=== PATIENT | female | born 1950 | race Caucasian/White ===

== ENCOUNTER 2017-04-07 11:38 | Emergency (ER) | payer MEDICARE, BC ==
[~2017-04-07] VITALS: Ht 157.5 cm; Wt 88.0 kg
[2017-04-07 11:45] VITALS: Ht 157.5 cm; Wt 88.0 kg
[2017-04-07] MEDS ORDERED: SOD CHLORIDE 0.9% 1,000 ML IV STA (13:44)
[2017-04-07] MEDS ORDERED: METF500T4 PO (13:58)
[2017-04-07] MEDS ORDERED: METO-429 PO (13:58)
[2017-04-07] MEDS ORDERED: RIVA20TA PO (13:59)
[2017-04-07] MEDS ORDERED: DIGO250T6 PO (13:59)
[2017-04-07] MEDS ORDERED: DEXL60CA2 PO (13:59)
[2017-04-07] MEDS ORDERED: ENAL5TAB PO (14:00)
[2017-04-07] MEDS ORDERED: ENALAPRILAT 1.25 MG INJ IV ONE (14:00)
[2017-04-07] MEDS ORDERED: LORAZEPAM 0.5 MG TAB PO ONE (14:00)
[2017-04-07 14:15] LABS: ADD SCAN DIFF NO
[2017-04-07 14:17] LABS: ABNORMAL IP MESSAGE 1; BASOPHILS % 0.6 % (0.0-2.0); EOSINOPHILS # 0.1 10^3/ul (0.0-0.5); HEMATOCRIT 37.6 % (37.0-47.0); HEMOGLOBIN 11.2 g/dl (12.0-16.0); LYMPHOCYTES # 1.9 10^3/ul (0.8-2.9); LYMPHOCYTES % 36.5 % (15.0-51.0); MEAN CORPUSCULAR HEMOGLOBIN 22.3 pg (29.0-33.0); MEAN CORPUSCULAR HGB CONC 29.8 g/dl (32.0-37.0); MEAN CORPUSCULAR VOLUME 74.9 fl (82.0-101.0); MONOCYTE # 0.4 10^3/ul (0.3-0.9); MONOCYTES % 8.2 % (0.0-11.0); NEUTROPHIL # 2.7 10^3/ul (1.6-7.5); NEUTROPHILS % 53.3 % (39.0-77.0); PLATELET COUNT 231 10^3/UL (140-415); RED BLOOD COUNT 5.02 10^6/ul (4.20-5.40); RED CELL DISTRIBUTION WIDTH 20.7 % (11.5-14.5); WHITE BLOOD COUNT 5.1 10^3/ul (4.8-10.8)
[2017-04-07 14:21] LABS: ADD UMIC NO; URINE BILIRUBIN (Dip) NEGATIVE (NEGATIVE); URINE BLOOD (Dip) NEGATIVE (NEGATIVE); URINE COLOR LT. YELLOW (YELLOW); URINE GLUCOSE (Dip) NEGATIVE (NEGATIVE); URINE KETONES (Dip) NEGATIVE (NEGATIVE); URINE LEUKOCYTE ESTERASE (Dip) NEGATIVE (NEGATIVE); URINE NITRITE (Dip) NEGATIVE (NEGATIVE); URINE TOTAL PROTEIN (Dip) NEGATIVE (NEGATIVE); URINE UROBILINOGEN (Dip) 0.2 E.U./dL (0.1-1.0)
[2017-04-07] MEDS ORDERED: NAPR-260 PO (14:42)
[2017-04-07] MEDS ORDERED: HYD25 PO (14:42)
--- NOTE | 2017-04-07 14:44 | ERD ---
ER Documentation Chief Complaint Date/Time DATE: 04/07/17 TIME: 14:43 Chief Complaint she feels slow, neck, back pain,htn, x 1 week HPI 66-year-old woman here for evaluation of hypertension. She does have a history of hypertension but her blood pressure has been running high recently, ever since her primary care physician told her to decrease the amount of metoprolol she uses due to unacceptable levels of bradycardia. Patient does have a history of bradycardia although this seems with her most recent dose of metoprolol pulse was running dangerously low. Patient states for the last few days she is pressure-like sensation in her scalp secondary to hypertension but denies chest pain or shortness of breath, no loss of consciousness, no slurred speech, noticed difficulty ambulating, no weakness in arms or legs. ROS All systems reviewed and are negative except as per history of present illness. Medications Home Meds Active Scripts Naproxen* (Naprosyn*) 500 Mg Tablet, 500 MG PO BID Y for PAIN AND/OR INFLAMMATION, #30 TAB Prov:NGHIA WINTER MD 04/07/17 Hydrochlorothiazide* (Hydrochlorothiazide*) 25 Mg Tab, 50 MG PO DAILY, #30 TAB Prov:NGHIA WINTER MD 04/07/17 Reported Medications Enalapril Maleate* (Enalapril Maleate*) 5 Mg Tablet, 5 MG PO DAILY, TAB 04/07/17 Rivaroxaban* (Xarelto*) 20 Mg Tablet, 20 MG PO WITH DINNER, TAB 04/07/17 Digoxin* (Lanoxin*) 0.25 Mg Tablet, 0.25 MG PO DAILY, TAB 04/07/17 Dexlansoprazole (Dexilant) 60 Mg Cap., 60 MG PO DAILY, #30 CAP 04/07/17 Metoprolol Tartrate* (Lopressor*) 50 Mg Tab, 50 MG PO BID, #60 TAB 04/07/17 Metformin Hcl* (Metformin Hcl*) 500 Mg Tablet, 500 MG PO WITH BREAKFAST, #30 TAB 04/07/17 Allergies Allergies: Coded Allergies: No Known Allergy (Unverified , 04/07/17) PMhx/Soc Hypertension, atrial fibrillation, obesity, bradycardia Hx Cardiac Disorders: Yes Hx Alcohol Use: No Hx Substance Use: No Hx Tobacco Use: No Smoking Status: Never smoker FmHx Family History: No diabetes Physical Exam Vitals Vital Signs Date Time Temp Pulse Resp B/P Pulse Ox O2 Delivery O2 Flow Rate FiO2 04/07/17 16:08 58 18 163/80 99 04/07/17 14:31 46 18 176/74 99 04/07/17 11:45 97.2 55 18 196/81 99 Physical Exam GENERAL: Well-developed, well-nourished, well-hydrated, in no apparent distress , looks nontoxic in appearance HEENT: Moist mucous membranes, pink conjunctiva, no cervical spine tenderness or step-off deformities, no goiter, no jaundice or icterus, extraocular movements intact without pain. No submandibular induration, and no pharyngeal erythema NEURO: Alert and oriented 3, cranial nerves II through XII intact bilaterally, pupils equal round reactive to light, no focal deficits or facial asymmetry, sensation intact distally Strength 5/5 in upper and lower extremities bilaterally CARDIAC: Regular rate and rhythm, no murmurs rubs or gallops LUNGS: Clear bilaterally no wheezing crackles or stridor ABDOMEN: Soft nontender, no guarding, no rigidity, no rebound, no psoas sign no obturator sign. Normoactive bowel sounds SKIN: Warm and dry to touch, no abrasions, contusions, or hematomas, no lacerations, no ecchymosis, no target lesions, and without ulcers EXTREMITIES: No clubbing cyanosis or edema, calves are bilaterally symmetrical, no Homans sign, no popliteal cord sign. Distal pulses equal and bilateral PSYCH: Normal affect without agitation or irritability Result Diagram: 04/07/17 1402 04/07/17 1500 Results 24 hrs Laboratory Tests Test 04/07/17 13:50 04/07/17 14:02 04/07/17 15:00 Urine Color LT. YELLOW Urine Clarity CLEAR Urine pH 6.5 Urine Specific [place] 1.010 Urine Ketones NEGATIVE Urine Nitrite NEGATIVE Urine Bilirubin NEGATIVE Urine Urobilinogen 0.2 E.U./dL Urine Leukocyte Esterase NEGATIVE Urine Hemoglobin NEGATIVE Urine Glucose NEGATIVE% Urine Total Protein NEGATIVE White Blood Count 5.110^3/ul Red Blood Count 5.0210^6/ul Hemoglobin 11.2g/dl Hematocrit 37.6% Mean Corpuscular Volume 74.9fl Mean Corpuscular Hemoglobin 22.3pg Mean Corpuscular Hemoglobin Concent 29.8g/dl Red Cell Distribution Width 20.7% Platelet Count 28836^3/UL Mean Platelet Volume fl Neutrophils % 53.3% Lymphocytes % 36.5% Monocytes % 8.2% Eosinophils % 1.0% Basophils % 0.6% Nucleated Red Blood Cells % 0.0/100WBC Neutrophils # 2.710^3/ul Lymphocytes # 1.910^3/ul Monocytes # 0.410^3/ul Eosinophils # 0.110^3/ul Basophils # 0.010^3/ul Nucleated Red Blood Cells # 0.010^3/ul Sodium Level 145mmol/L Potassium Level 3.8mmol/L Chloride Level 104mmol/L Carbon Dioxide Level 29mmol/L Anion Gap 16 Blood Urea Nitrogen 10mg/dl Creatinine 0.57mg/dl Glucose Level 105mg/dl Calcium Level 9.6mg/dl Total Bilirubin 0.6mg/dl Direct Bilirubin 0.00mg/dl Indirect Bilirubin 0.6mg/dl Aspartate Amino Transf (AST/SGOT) 23IU/L Alanine Aminotransferase (ALT/SGPT) 38IU/L Alkaline Phosphatase 68IU/L Troponin I < 0.012ng/ml Total Protein 7.9g/dl Albumin 4.3g/dl Globulin 3.60g/dl Albumin/Globulin Ratio 1.19 Lipase 48U/L Current Medications Medications (Trade) Dose Ordered Sig/[place] Route PRN Reason Start Time Stop Time Status Last Admin Dose Admin Sodium Chloride (NS) 1,000 ml @ 1,000 mls/hr Q1H STAT IV 04/07/17 13:44 04/07/17 14:43 DC 04/07/17 14:21 Enalaprilat (Vasotec Iv) 1.25 mg ONCE ONCE IV 04/07/17 14:00 04/07/17 14:01 DC 04/07/17 14:21 Lorazepam (Ativan) 0.5 mg ONCE ONCE PO 04/07/17 14:00 04/07/17 14:01 DC 04/07/17 14:20 Procedures/[facility] IV line was established patient was placed on surveillance system monitor rhythm strip revealed a narrow complex bradycardia at about 50 bpm. Patient was afebrile. EKG performed, read by me revealed an atrial fibrillation with slow ventricular response of 52 bpm, normal axis, narrow QRS complex, no concerning ST elevations or depressions noted. I administered 1 L normal saline intravenously, lorazepam 0.5 mg p.o., and enalapril 1.25 mg IV with good effect. CBC and electrolytes were unremarkable, liver function tests are normal, troponin was negative. Urine analysis was negative for infection. Systolic diastolic pressures fell about 20 points, patient feels much better and looks well. I recommended she use hydrochlorothiazide daily to help control her blood pressure until she sees her PMD. I did prescribe her this hydrochlorothiazide 50 mg p.o. Differential diagnoses considered, included but not limited to acute coronary syndrome, pulmonary embolism, aortic dissection, abdominal aortic aneurysm, sepsis, stroke, meningitis, encephalitis, pneumonia, appendicitis, cholecystitis , bowel obstruction, pyelonephritis, nephrolithiasis, cystitis, as well as metabolic, hematologic, and electrolyte abnormalities. As well as abscess, cellulitis, fractures, and dislocations. Patient feels much better at this time, and vital signs are normal, symptoms have improved. I did give strict instructions to return to the ED if symptoms continue or worsen, patient will otherwise follow-up with primary care physician. Patient understood instructions and agreed to plan. Departure Diagnosis: Primary Impression: Hypertension Hypertension type: essential hypertension Qualified Code: I10 - Essential hypertension Additional Impression: Bradycardia Condition: Good Patient Instructions: High Blood Pressure (Hypertension) NGHIA WINTER MD April 07, 2017 14:44
[2017-04-07 15:31] LABS: ALBUMIN 4.3 g/dl (3.3-4.9)
[2017-04-07 15:32] LABS: CHLORIDE 104 mmol/L (97-110); POTASSIUM 3.8 mmol/L (3.5-5.1); SODIUM 145 mmol/L (135-144)
[2017-04-07 15:34] LABS: BILIRUBIN,INDIRECT 0.6 mg/dl (0-1.1); BILIRUBIN,TOTAL 0.6 mg/dl (0.2-1.3); CREATININE 0.57 mg/dl (0.44-1.00)
[2017-04-07 15:35] LABS: ALANINE AMINOTRANSFERASE 38 IU/L (13-69); ALBUMIN/GLOBULIN RATIO 1.19; ALKALINE PHOSPHATASE 68 IU/L (42-121); ANION GAP 16 (8-16); ASPARTATE AMINO TRANSFERASE 23 IU/L (15-46); BLOOD UREA NITROGEN 10 mg/dl (7-20); CALCIUM 9.6 mg/dl (8.4-10.2); CARBON DIOXIDE 29 mmol/L (21-31); GLUCOSE 105 mg/dl (70-220); TOTAL PROTEIN 7.9 g/dl (6.1-8.1)
[2017-04-07 15:48] LABS: TROPONIN-I < 0.012 ng/ml (0.00-0.12)
[2017-04-07 16:08] VITALS: BP 163/80; PULSE 58; RESP 18
== END 2017-04-07 16:22 | disposition home or self-care (01) ==
LOC: E/R 11:38
DX: I10 Essential (primary) hypertension (principal); R00.1 Bradycardia, unspecified; Z79.84 Long term (current) use of oral hypoglycemic drugs
CPT/HCPCS: 80053; 81003; 83690; 84484; 85025; 93005; J7030; 36415; 96374